=== PATIENT | male | born 1980 | race Caucasian/White ===

== ENCOUNTER 2016-03-06 17:57 | Emergency (ER) | payer MEDICAID, OTHER ==
[2016-03-06 18:59] LABS: URINE BILIRUBIN NEGATIVE (NEGATIVE); URINE BLOOD NEGATIVE (NEGATIVE); URINE GLUCOSE (UA) NEGATIVE (NEGATIVE); URINE LEUKOCYTE ESTERASE NEGATIVE (NEGATIVE); URINE NITRITE NEGATIVE (NEGATIVE); URINE PROTEIN TRACE (NEGATIVE); URINE UROBILINOGEN NORMAL (0-1 mg/dl)
[2016-03-06 19:15] LABS: URINE APPEARANCE CLEAR; URINE COLOR DARK YELLOW
[2016-03-06 19:17] LABS: ACETAMINOPHEN < 10 ug/ml
[2016-03-06 19:18] LABS: AMPHETAMINES/METHAMPHETAMINES NEGATIVE (NEGATIVE); COCAINE NEGATIVE (NEGATIVE); MARIJUANA NEGATIVE (NEGATIVE); METHADONE NEGATIVE (NEGATIVE); OPIATES POSITIVE (NEGATIVE); TRICYCLIC ANTIDEPRESSANTS NEGATIVE (NEGATIVE)
[2016-03-06 19:22] LABS: SALICYLATE < 5 mg/dl (0-30)
== END 2016-03-06 20:41 | disposition home or self-care (01) ==
LOC: ED 17:57
DX: K29.70 Gastritis, unspecified, without bleeding (principal); F32.9 Major depressive disorder, single episode, unspecified; F17.210 Nicotine dependence, cigarettes, uncomplicated

== ENCOUNTER 2016-06-06 16:27 | Emergency (ER) | payer MEDICAID ==
[2016-06-06 17:12] LABS: SPECIFIC GRAVITY 1.025 (1.001-1.030); URINE BILIRUBIN NEGATIVE (NEGATIVE); URINE BLOOD NEGATIVE (NEGATIVE); URINE GLUCOSE (UA) NEGATIVE (NEGATIVE); URINE LEUKOCYTE ESTERASE NEGATIVE (NEGATIVE); URINE NITRITE NEGATIVE (NEGATIVE); URINE PROTEIN NEGATIVE (NEGATIVE); URINE UROBILINOGEN 1 mg/dL (0-1 mg/dl)
[2016-06-06 17:17] LABS: URINE APPEARANCE CLEAR; URINE COLOR YELLOW
[2016-06-06] MEDS ORDERED: HYDROCODONE/ACETAMINOPHEN 5/325MG TABLET ONE (20:02)
[2016-06-06] MEDS ORDERED: IBUPROFEN 800 MG TABLET ONE (20:02)
== END 2016-06-06 20:24 | disposition home or self-care (01) ==
LOC: ED 16:27
DX: K40.90 Unilateral inguinal hernia, without obstruction or gangrene, not specified as recurrent (principal); F17.210 Nicotine dependence, cigarettes, uncomplicated
CPT/HCPCS: 81003; 99283 ×2; A9270 ×2

== ENCOUNTER 2016-06-12 13:39 | Emergency (ER) | payer MEDICAID ==
[2016-06-12] MEDS ORDERED: HYDROCODONE/ACETAMINOPHEN 5/325MG TABLET ONE (14:09)
--- NOTE | 2016-06-12 14:57 | CT ---
ABD/PELVIS W/O CON COMPARISON: None HISTORY: 36-year-old male was at the emergency department one week ago with the diagnosis of a right inguinal hernia, returning with increasing pain. Technique: Using a [employer] Aquilion [address] scanner, images were obtained from the diaphragm to the floor the pelvis. No intravenous contrast. An automated dose reduction technique was used to minimize patient radiation dose. Dose: CTDIvol (mGy): 39.60 DLP(mGycm): 2234.30 FINDINGS: Lung bases: Normal Inferior mediastinum and heart: Normal Liver: Normal Gallbladder: Normal Bile ducts: Normal. Pancreas: Normal Spleen: Normal Adrenal glands: Normal Kidneys: Normal Ureters: Normal Urinary bladder: Normal Prostate gland and seminal vesicles: Normal Blood vessels: Normal. Lymph nodes: Normal Stomach: Normal Duodenum: Normal Small intestine: Normal Appendix: Normal Colon: Normal Abdominal wall and supporting musculature: Normal. No hernias. Bones: Normal. IMPRESSION: 1. Normal CT abdomen and pelvis without contrast. No CT evidence of inguinal hernia. The report was sent to the emergency department electronic medical record system, 06/12/2016 at 14:59
--- NOTE | 2016-06-12 17:08 | US ---
SCROTUM CONTENTS COMPARISON: CT abdomen and pelvis, 06/12/2016 HISTORY: Right lower quadrant pain. Possible right inguinal hernia. Negative CT of the abdomen and pelvis. FINDINGS: Right testicle: 5.0 x 1.9 x 3.3 cm. Normal echogenicity and blood flow. Right epididymis: 1.3 x 1.3 x 1.5 cm. It contains a cyst up to 6.9 mm. Right varicocele: None Right hydrocele: None Left testicle: 4.2 x 1.8 x 3.3 cm. Normal echogenicity. Normal blood flow. Left epididymis: 1.4 x 1.4 x 1.1 cm. Left varicocele: None Left hydrocele: Mild. Inguinal canals: Normal. IMPRESSION: 1. The patient has pain in the region of the right inguinal canal, but the spermatic cord is sonographically normal and there is no evidence of a hernia. 2. Incidentally noted small cyst in the right epididymis. Normal right testicle. 3. Incidentally noted small left hydrocele. Report was sent to the emergency department electronic medical record system 06/12/2016 at 17:10
== END 2016-06-12 17:38 | disposition home or self-care (01) ==
LOC: ED 13:39
DX: R10.31 Right lower quadrant pain (principal); N43.3 Hydrocele, unspecified
CPT/HCPCS: 74176; 76705; 76870; 99283 ×2; A9270